=== PATIENT | male | born 1985 | race Caucasian/White ===

== ENCOUNTER 2022-02-17 21:40 | Emergency (ER) | payer OTHER ==
[~2022-02-17] VITALS: Ht 188 cm; Wt 77.1 kg
[2022-02-17] MEDS ORDERED: BUSPIRONE HCL15 MG PO (21:56)
[2022-02-17] MEDS ORDERED: HYDROCODON-ACE1 EA10 PO (23:03)
== END 2022-02-17 23:24 | disposition home or self-care (01) ==
LOC: ED 21:40
DX: S82.442A Displaced spiral fracture of shaft of left fibula, initial encounter for closed fracture (principal); W00.0XXA Fall on same level due to ice and snow, initial encounter; Z79.899 Other long term (current) drug therapy
CPT/HCPCS: 73610; 99283-25; A9270